=== PATIENT | male | born 1950 | race Caucasian/White ===

== ENCOUNTER 2021-02-07 08:48 | Emergency (ER) | payer OTHER ==
[~2021-02-07] VITALS: Ht 177.8 cm; Wt 90.7 kg
[2021-02-07] MEDS ORDERED: PANT40 PO (09:07)
[2021-02-07] MEDS ORDERED: LISI5 PO (09:08)
[2021-02-07] MEDS ORDERED: CYCL10 PO (10:36)
== END 2021-02-07 10:48 | disposition home or self-care (01) ==
LOC: ER 08:48
DX: G58.8 Other specified mononeuropathies (principal); M54.32 Sciatica, left side; I10 Essential (primary) hypertension; F17.210 Nicotine dependence, cigarettes, uncomplicated; Z79.899 Other long term (current) drug therapy
CPT/HCPCS: 96374; 99283-25; A9270; J1885

== ENCOUNTER 2021-02-24 11:46 | Emergency (ER) | payer OTHER ==
[~2021-02-24] VITALS: Ht 177.8 cm; Wt 90.3 kg
[~2021-02-24 11:46] MED LIST: CYCL10 PO; LISI5 PO; PANT40 PO
[2021-02-24] MEDS ORDERED: OXYC15ER PO (12:27)
== END 2021-02-24 12:43 | disposition home or self-care (01) ==
LOC: ER 11:46
DX: M54.16 Radiculopathy, lumbar region (principal); G89.29 Other chronic pain; I10 Essential (primary) hypertension; F17.210 Nicotine dependence, cigarettes, uncomplicated; Z79.899 Other long term (current) drug therapy
CPT/HCPCS: 99283

== ENCOUNTER 2021-06-28 10:26 | Inpatient (IN) | payer OTHER ==
[~2021-06-28] VITALS: Ht 177.8 cm; Wt 95.2 kg
[~2021-06-28 10:26] MED LIST changes: +LISI20 PO; -LISI5 PO; +OXYC15ER PO
[2021-06-28 10:56] LABS: BASOPHILS ABSOLUTE AUTO 0.11 K/mm3 (0.00-0.23); BASOPHILS PERCENT AUTO 1 % (0-2); EOSINOPHILS ABSOLUTE AUTO 0.58 K/mm3 (0.00-0.68); EOSINOPHILS PERCENT AUTO 6 % (0-6); Hematocrit 45.3 % (37.0-53.0); Hemoglobin 15.2 g/dL (13.5-17.5); IMMATURE GRAN ABSOLUTE AUTO 0.03 K/mm3 (0.00-0.10); IMMATURE GRAN PERCENT AUTO 0 % (0-1); LYMPHOCYTES ABSOLUTE AUTO 3.04 K/mm3 (0.84-5.20); LYMPHOCYTES PERCENT AUTO 30 % (21-46); MONOCYTES ABSOLUTE AUTO 0.69 K/mm3 (0.16-1.47); MONOCYTES PERCENT AUTO 7 % (4-13); Mean Corpuscular HGB 31.4 pg (26.0-34.0); Mean Corpuscular HGB Conc 33.6 g/dL (31.5-36.5); Mean Corpuscular Volume 94 fL (80-100); Mean Platelet Volume 9.7 fL (9.1-12.4); NEUTROPHILS ABSOLUTE AUTO 5.56 K/mm3 (1.96-9.15); NEUTROPHILS PERCENT AUTO 56 % (41-73); Platelet Count 451 K/mm3 (150-400); RDW Coefficient Variation 13.3 % (11.7-14.2); RDW Standard Deviation 46.5 fL (35.1-46.3); Red Blood Cell Count 4.84 M/mm3 (4.30-5.90); White Blood Cell Count 10.01 K/mm3 (4.00-11.30)
[2021-06-28 11:14] LABS: Albumin, Blood 3.5 g/dL (3.4-5.0); Albumin/Globulin Ratio 1.1 (0.8-1.8); Bilirubin, Total 0.2 mg/dL (0.1-1.0); Bun/Creatinine Ratio 17.3 (12.0-20.0); Calcium, Blood 8.9 mg/dL (8.5-10.1); Creatinine, Blood 0.92 mg/dL (0.60-1.20); Globulin, Blood 3.3 g/dL (2.2-4.0); Potassium, Blood 4.3 mmol/L (3.5-5.5); Total Protein, Blood 6.8 g/dL (6.4-8.2)
[2021-06-28] MEDS ORDERED: MOBIC15 MG PO (11:40)
[2021-06-28] MEDS ORDERED: GABA400 PO (11:40)
--- NOTE | 2021-06-28 14:06 | NUR ---
TOOK REPORT FROM MAYRA IN ER TO ASSUME CARE OF PT.
[2021-06-28] MEDS ORDERED: PANT20 PO (16:02)
[2021-06-28 16:12] LABS: CHOL/HDL RATIO 4.7; Cholesterol 185 mg/dL (50-200); HDL Cholesterol 39 mg/dL (>39); LDL/HDL RATIO 3.1; Low Density Lipoprotein Chol 120 mg/dL (0-110); Triglycerides 129 mg/dL (30-160); Very Low Density Lipoprot Chol 25 mg/dL (6-32)
--- NOTE | 2021-06-28 17:15 | NUR ---
CALLED IN CARDIAC CONSULT FOR NSTEMI TO DR. MEJIA OFFICE @[id number].
--- NOTE | 2021-06-28 17:16 | NUR ---
SHIFT SUMMARY- PT ADMITTED TO FLOOR IN AFTERNOON. PT IN GOOD SPIRITS AND COOPERATIVE OF NEEDED CARE. PT HAS GOOD APPETITE. PT INDEPENDANT IN ROOM. VSS. PT RSETING COMFORTABLY WITH CALL LIGHT WITH IN REACH.
[2021-06-28 17:52] LABS: Anti-Xa UFH, PHA Monitoring <0.10 IU/mL; Prothrombin Time Results 10.5 Sec (9.7-11.5)
--- NOTE | 2021-06-28 22:05 | NUR ---
At 2054, patient troponin came back at 930. this was an increase from the 522 Troponin drawn at 1500. Patient remains asymptomatic with no complaints. spray pilot and evening hospitalist were informed. Since patient already on a heparin gtt and is NPO for the cathlab in the morning. will continue close monitoring
[2021-06-29 00:24] LABS: Hematocrit 42.3 % (37.0-53.0); Hemoglobin 14.1 g/dL (13.5-17.5); Mean Corpuscular HGB 31.2 pg (26.0-34.0); Mean Corpuscular HGB Conc 33.3 g/dL (31.5-36.5); Mean Corpuscular Volume 94 fL (80-100); Mean Platelet Volume 9.7 fL (9.1-12.4); Platelet Count 432 K/mm3 (150-400); RDW Coefficient Variation 13.6 % (11.7-14.2); RDW Standard Deviation 47.2 fL (35.1-46.3); Red Blood Cell Count 4.52 M/mm3 (4.30-5.90); White Blood Cell Count 12.12 K/mm3 (4.00-11.30)
[2021-06-29 00:45] LABS: Bun/Creatinine Ratio 17.4 (12.0-20.0); Calcium, Blood 8.9 mg/dL (8.5-10.1); Creatinine, Blood 1.15 mg/dL (0.60-1.20)
--- NOTE | 2021-06-29 05:38 | NUR ---
Patient A&OX4. pleasant and cooperative with care with jovial sense of humor despite anxiety over rising troponin. up independently in room without any complaint of chest pain or pressure throughout the shift. Troponin drawn at 8:50 was 930. Morning troponin to be drawn at 0600. Heparin gtt continues at 15units/kg/hr. TELE: SB/SR MID 50 - 60'S with brief touches into the 40's. Patient unsure of baseline heart rate. NPO SINCE 2400 FOR POSSIBLE INTERVENTION OR TESTING
--- NOTE | 2021-06-29 11:26 | NUR ---
PATIENT TO GO TO PCU 14 AFTER PHOTO MANAGER. REPORT GIVENT Mayco ANTHONY RN. BELONGINGS SENT TO UNIT.
[2021-06-30 03:53] LABS: Hematocrit 40.3 % (37.0-53.0); Hemoglobin 13.3 g/dL (13.5-17.5); Mean Corpuscular HGB 31.1 pg (26.0-34.0); Mean Corpuscular Volume 94 fL (80-100); Mean Platelet Volume 9.9 fL (9.1-12.4); Platelet Count 388 K/mm3 (150-400); RDW Coefficient Variation 13.7 % (11.7-14.2); RDW Standard Deviation 47.5 fL (35.1-46.3); Red Blood Cell Count 4.28 M/mm3 (4.30-5.90); White Blood Cell Count 10.27 K/mm3 (4.00-11.30)
[2021-06-30 04:12] LABS: Bun/Creatinine Ratio 12.3 (12.0-20.0); Calcium, Blood 8.6 mg/dL (8.5-10.1); Creatinine, Blood 1.22 mg/dL (0.60-1.20); Potassium, Blood 4.6 mmol/L (3.5-5.5)
[2021-06-30] MEDS ORDERED: Aspir 8181 MG PO (08:30)
[2021-06-30] MEDS ORDERED: ATOR80 PO (08:30)
[2021-06-30] MEDS ORDERED: CLOP75 PO (08:31)
[2021-06-30] MEDS ORDERED: METO25 PO (08:32)
[2021-06-30] MEDS ORDERED: NITR.4SL SL (08:33)
--- NOTE | 2021-06-30 10:05 | NUR ---
DISCHARGE SUMMARY: PATIENT AND AT BEDSIDE, UNDERSTOOD COMPLETELY THE DISCHARGE INSTRUCTIONS, RADIAL SITE CARE, MEDICATIONS, ACTIVITY RESTRICTIONS, ETC. ALL QUESTIONS ANSWERED, WITH COMPLETE UNDERSTANDING. PATIENT WAS TAKEN OFF TELE, AND IV WAS ALREADY REMOVED, PATIENT WAS IN NO SIGNS OF ACUTE DISTRESS, DENIED CHEST PAIN/PRESSURE, OR SOB WITH EXERTION. PATIENT WAS ESCORTED BY RN TO VEHICLE. NO FURTHER QUESTIONS COMMENTS OR CONCERNS FROM EITHER DEMOCRAT.
== END 2021-06-30 10:07 | disposition home or self-care (01) | DRG 247 ==
LOC: ER 10:26 → MEDS 13:14 → PCU 06-29 10:57
PROVIDERS: Emergency Medicine; Internal Medicine Cardiovascular Disease; Student in an Organized Health Care Education/Training Program; ADMIT Internal Medicine
PROC: 027136Z Dilation of Coronary Artery, Two Arteries with Three Drug-eluting Intraluminal Devices, Percutaneous Approach (ICD-10-PCS; principal; 2021-06-29)
PROC: B2111ZZ Fluoroscopy of Multiple Coronary Arteries using Low Osmolar Contrast (ICD-10-PCS; 2021-06-29)
DX: I21.4 Non-ST elevation (NSTEMI) myocardial infarction (principal); F17.210 Nicotine dependence, cigarettes, uncomplicated; R91.8 Other nonspecific abnormal finding of lung field; G62.9 Polyneuropathy, unspecified; I10 Essential (primary) hypertension; E78.5 Hyperlipidemia, unspecified; M54.9 Dorsalgia, unspecified; G89.29 Other chronic pain; I25.10 Atherosclerotic heart disease of native coronary artery without angina pectoris; E66.9 Obesity, unspecified; M54.31 Sciatica, right side; I24.9 Acute ischemic heart disease, unspecified; Z68.29 Body mass index [BMI] 29.0-29.9, adult; Z79.811 Long term (current) use of aromatase inhibitors; Z79.891 Long term (current) use of opiate analgesic; Z98.890 Other specified postprocedural states; Z79.899 Other long term (current) drug therapy
CPT/HCPCS: 36415; 71045; 71275; 80048; 80053; 80061; 84484; 85025; 85027; 85347; 85520; 85610; 93005; 93010; 93306; 93454; 96374-59; 96375; 96375-59; 99152; 99153; 99285-25; A9270; C1725; C1769; C1874; C1887; C1894; C9600; G0378; J1644; J2250; J2270; J2405; J3010; J7030; J7040; Q9967